=== PATIENT | male | born 1950 | race Caucasian/White ===

== ENCOUNTER 2021-08-02 13:04 | Emergency (ER) | payer MEDICARE, MEDICAID, SELFPAY ==
--- NOTE | ~2021-08-02 | XR_ITS ---
EXAMINATION: XR ANKLE, LEFT CLINICAL INFORMATION: Fall with ankle pain COMPARISON: None TECHNIQUE: AP, lateral, and mortise views of the left ankle. FINDINGS: There is an 8 x 5 mm bony density seen overlying the fibula with some irregularity about the contour of the lateral most aspect of the distal tibia which I do not definitely see it on other images and with this appearance I'm suspicious for possible distal tibial fracture which may be acute or chronic in nature as I do not definitely see an ankle effusion. This could also possibly be related to a fibular bone island however I cannot be sure of this. There is a large amount soft tissue swelling seen about the ankle. The ankle mortise appears intact with no widening of the medial joint space. Calcaneal spurs are present sites of insertion of Achilles and plantar tendons. XR/XR ankle LT 2V IMPRESSION: Question avulsion injury of the distal lateral tibia as described which may be acute or chronic in nature. Since I do not see a definite ankle effusion this may be a chronic finding. Clinical correlation is suggested. Calcaneal spurs.
[2021-08-02 14:18] VITALS: BP 176/91; PULSE 85; RESP 16; TEMP 36.9; O2SAT 98; BMI 38.7
[2021-08-02 15:08] LABS: MANUAL DIFF FLAG NO
[2021-08-02 15:10] LABS: Basophils Percent Auto 0.3 % (0-2); Eosinophils Absolute Auto 0.1 X10*3/uL (0.0-0.4); Eosinophils Percent Auto 0.4 % (0-4); Hematocrit 48.8 % (42.0-52.0); Hemoglobin 16.4 g/dl (14.0-18.0); Imm Gran Abs Auto 0.05 X10*3/uL (0.00-0.03); Imm Gran Pct Auto 0.4 % (0.0-0.4); Lymphocytes Absolute Auto 1.4 X10*3/uL (1.2-4.9); Lymphocytes Percent Auto 10.2 % (20-40); Mean Corpuscular HGB Conc 33.6 g/dl (31.0-36.0); Mean Corpuscular Hemoglobin 30.7 pg (27.0-33.0); Mean Corpuscular Volume 91.2 fL (80.0-98.0); Mean Platelet Volume 11.1 fL (9.4-12.4); Monocytes Absolute Auto 0.8 X10*3/uL (0.1-1.2); Monocytes Percent Auto 6.1 % (2-11); Neutrophils Absolute Auto 11.3 x10*3/uL (2.0-8.3); Neutrophils Percent Auto 82.6 % (45-73); Platelet Count 229 X10*3/uL (160-400); Red Blood Count 5.35 X10*6/uL (4.60-5.80); Red Cell Distribution Width 12.6 % (11.0-16.0); White Blood Count 13.7 X10*3/uL (4.8-10.8)
[2021-08-02 15:24] LABS: Anion Gap 12 (12-20); Blood Urea Nitrogen 8 mg/dL (9-16); Calcium 9.3 mg/dL (8.4-10.2); Carbon Dioxide 27 mmol/L (22-29); Chloride 104 mmol/L (96-108); Creatinine Clr Calc Pharmacy 77.2; Estimated Glomerular Filt Rate > 60; Glucose Random 103 mg/dL (60-115); Potassium 4.4 mmol/L (3.3-5.1); Sodium 139 mmol/L (135-145)
[2021-08-02 16:06] VITALS: BP 178/103; PULSE 81; RESP 19; TEMP 36.7; O2SAT 96
--- NOTE | 2021-08-02 16:07 | PC.NURSE ---
swelling noted left ankle. states he hasn't had near syncopal episodes since triage. skin pwd. no neuro deficits.
--- NOTE | 2021-08-02 16:10 | ECG_ITS ---
Test Reason : sycopal Blood Pressure : / mmHG Vent. Rate : 078 BPM Atrial Rate : 078 BPM P-R Int : 152 ms QRS Dur : 098 ms QT Int : 402 ms P-R-T Axes : 033 -36 -01 degrees QTc Int : 458 ms Normal sinus rhythm with sinus arrhythmia Left axis deviation Minimal voltage criteria for LVH, may be normal variant ( R in aVL ) Abnormal ECG When compared with ECG of 19-JUL-2016 10:18, No significant change was found Referred By: Generic ED Physician Electronically Signed By:LUCIO EASTMAN MD
--- NOTE | 2021-08-02 16:50 | PC.NURSE ---
garrett [phone] call for latanya
== END 2021-08-02 21:09 | disposition left against medical advice (07) ==
PROVIDERS: Emergency Medicine; Emergency Provider Emergency Medicine
DX: M25.572 Pain in left ankle and joints of left foot (principal); R55 Syncope and collapse; Z79.899 Other long term (current) drug therapy
CPT/HCPCS: 36415; 73600; 80048; 85025; 93005; 99283